=== PATIENT | male | born 1965 | race Caucasian/White ===

== ENCOUNTER 2023-02-02 09:00 | Outpatient (RCR) | payer OTHER, SELFPAY ==
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
--- NOTE | 2023-02-02 10:04 | HMH.RHREAS ---
Rehab Reassessment Rehab OP Re-assessment Start: 02/02/23 08:56 Freq: Status: Active Protocol: Document 02/02/23 08:56 IGGY (Rec: 02/02/23 10:04 IGGY [id number]) E-signed By Vani Santos PT Rehab Re-assessment Subjective Subjective Pt reports he feels 20-30% improved since starting PT. Pt reports he is able to turn his head a little more but continues to have severe pain, headaches and limited cervical mobility. Pt reports pain at worst as 10/10 with headaches every day. Pt reports headaches last 1-2 days and only improve with ice and rest. Pt reports if headaches are really bad he has occipital, frontal and temporal pain that leads to nausea/vomiting. Pt also reports intermittent ringing in both ears that is worse with headaches. Pt reports constant tingling of the L middle, ring and pinky finger. Pt reports he was only prescribed muscle relaxers but currently is not taking any medications for pain. Objective Objective Notes TTP: moderate tenderness to light palpation of the left upper trapezius origin and suboccipital muscles with mod- severe tightness noted Cervical AROM: flex 25, ext 15 p!, 30 LLF p!, 30 RLF, R rot 20, L rot 20 Scapular strength: 4-/5 Assessment Progress Assessment Slower Than Expected Assessment Notes Pt has attended 6 PT visits consisting of gentle cervical mobility/flexibility exercises , modalities and manual therapy with poor-fair tolerance due to pain. Pt demonstrated slightly improved cervical AROM this date compared to initial evaluation . Pt continues to report severe pain, headaches,
== END 2023-02-02 09:05 | disposition home or self-care (01) ==
LOC: PT 09:00
PROVIDERS: Visit Provider Family Medicine
DX: M54.2 Cervicalgia (principal); V89.2XXA Person injured in unspecified motor-vehicle accident, traffic, initial encounter
CPT/HCPCS: 97010; 97014; 97035; 97110; 97140; 97163; 97164; G0283

== ENCOUNTER → 2023-02-20 12:42 | Outpatient (CLI) | payer OTHER, SELFPAY ==
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
== END ==
PROVIDERS: PCP Family Medicine; Visit Provider Family Medicine
DX: M54.2 Cervicalgia (principal); M25.512 Pain in left shoulder; Z87.828 Personal history of other (healed) physical injury and trauma; V89.2XXA Person injured in unspecified motor-vehicle accident, traffic, initial encounter
CPT/HCPCS: 70200; 70547; 73221

== ENCOUNTER → 2023-03-09 10:35 | Outpatient (CLI) | payer OTHER, SELFPAY ==
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
== END ==
PROVIDERS: PCP Family Medicine; Visit Provider Family Medicine
DX: Z87.828 Personal history of other (healed) physical injury and trauma (principal); M54.2 Cervicalgia
CPT/HCPCS: 72141; 76376

== ENCOUNTER → 2023-04-08 10:47 | Outpatient (POV) | payer OTHER, SELFPAY ==
[2023-04-08 11:06] VITALS: BP 156/82; PULSE 66; RESP 20; O2SAT 94; BMI 24.4
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
== END ==
PROVIDERS: PCP Family Medicine; Visit Provider Nurse Practitioner Family
DX: M50.10 Cervical disc disorder with radiculopathy, unspecified cervical region (principal); M25.512 Pain in left shoulder; M48.00 Spinal stenosis, site unspecified
CPT/HCPCS: 99202; G0463